=== PATIENT | female | born 1995 | race Caucasian/White ===

== ENCOUNTER 2017-11-28 17:52 | Inpatient (IN) | payer OTHER, MEDICAID ==
[~2017-11-28] VITALS: Ht 167.6 cm; Wt 108.6 kg
[~2017-11-28 17:52] MED LIST: IBUP-1222 PO
[2017-11-28] MEDS ORDERED: OXYTOCIN 30U/ 0.9% NaCL 500ML 500 ML IV PRN (17:53)
[2017-11-28] MEDS ORDERED: D5%-LACTATED RINGERS 1,000 ML IV SCH (17:53)
[2017-11-28] MEDS ORDERED: OXYTOCIN 30U/ 0.9% NaCL 500ML 500 ML IV ONE (17:53)
[2017-11-28] MEDS ORDERED: ONDANSETRON 2MG/ML, 2ML IVPush PRN (18:00)
[2017-11-28] MEDS ORDERED: FENTANYL PF 100 MCG/2ML IVPush PRN (18:00)
[2017-11-28] MEDS ORDERED: TERBUTALINE 1 MG/ML, 1ML IVPush PRN (18:00)
[2017-11-28] MEDS ORDERED: FENTANYL PF 100 MCG/2ML IV PRN (18:00)
[2017-11-28] MEDS: LACTATED RINGERS 1,000 ML IV SCH (18:25)
[2017-11-28] MEDS ORDERED: MISOPROSTOL 200 MCG TABLET ONE (18:28)
[2017-11-28] MEDS ORDERED: OXYTOCIN 30U/ 0.9% NaCL 500ML 500 ML ONE ×2 (18:28→23:04)
[2017-11-28] MEDS ORDERED: NEWBORN KIT ONE (18:28)
[2017-11-28] MEDS ORDERED: LIDOCAINE 1%, 20ML ONE (18:28)
[2017-11-28 18:41] LABS: ALANINE AMINOTRANSFERASE 69 U/L (12-78); ALBUMIN 2.7 g/dL (3.4-5.0); ANION GAP 10 mmol/L (5-15); CALCIUM 8.7 mg/dL (8.5-10.1); CHLORIDE 107 mmol/L (98-107)
[2017-11-28 18:44] LABS: ALKALINE PHOSPHATASE 250 U/L (45-117); BILIRUBIN,TOTAL 0.2 mg/dL (0.2-1.0); TOTAL PROTEIN 7.1 g/dL (6.4-8.2)
[2017-11-28 18:47] LABS: BASOPHILS # (AUTO) 0.02 x10^3/uL (0-0.1); BASOPHILS % (AUTO) 0 % (0-1); BILIRUBIN, DIRECT < 0.1 mg/dL (0.1-0.2); EOSINOPHILS # (AUTO) 0.03 x10^3/uL (0-0.4); EOSINOPHILS % (AUTO) 0 % (1-7); LYMPHOCYTES # (AUTO) 1.43 x10^3/uL (1-3.4); LYMPHOCYTES % (AUTO) 24 % (22-44); MD MORPH REVIEW ONLY; MEAN CORPUSCULAR HGB CONC 34.2 g/dL (32.4-35.8); MEAN CORPUSCULAR VOLUME 82.1 fL (80-100); MEAN PLATELET VOLUME 11.6 fL (7.4-10.4); MONOCYTES # (AUTO) 0.29 x10^3/uL (0.2-0.8); MONOCYTES % (AUTO) 5 % (2-9); NEUTROPHILS # (AUTO) 4.28 x10^3/uL (1.8-6.8); NEUTROPHILS % (AUTO) 71 % (42-75); PLATELET COUNT 201 x10^3/uL (130-400); RED BLOOD COUNT 4.04 x10^6/uL (3.82-5.3)
[2017-11-28 18:49] LABS: <PLATELET ESTIMATE> ADEQUATE; <RBC MORPHOLOGY> NORMAL
[2017-11-28 18:50] LABS: GIANT PLATELETS 1+; LARGE PLATELETS 1+
[2017-11-28] MEDS ORDERED: FENTANYL PF 100 MCG/2ML ONE (21:13)
[2017-11-28] MEDS ORDERED: MISOPROSTOL 200 MCG TABLET PR PRN (23:00)
[2017-11-28] MEDS ORDERED: ONDANSETRON 2MG/ML, 2ML IV PRN (23:00)
[2017-11-28] MEDS ORDERED: OXYcodone IR 5MG TABLET PO PRN (23:00)
[2017-11-28] MEDS ORDERED: OXYcodone/APAP 5/325MG TABLET PO PRN (23:00)
[2017-11-28] MEDS ORDERED: ACETAMINOPHEN 325 MG TABLET PO PRN (23:00)
[2017-11-28] MEDS ORDERED: IBUPROFEN 600 MG TABLET ONE (23:04)
[2017-11-28] MEDS: IBUPROFEN 600 MG TABLET PO PRN (23:05)
[2017-11-28] MEDS: OXYTOCIN 30U/ 0.9% NaCL 500ML 500 ML IV SCH (23:41)
[2017-11-29 00:35] VITALS: BP 131/82
[2017-11-29] MEDS: LACTATED RINGERS 1,000 ML IV SCH (01:53)
[2017-11-29 04:30] VITALS: BP 133/83
[2017-11-29 05:24] LABS: BASOPHILS # (AUTO) 0.02 x10^3/uL (0-0.1); BASOPHILS % (AUTO) 0 % (0-1); EOSINOPHILS # (AUTO) 0.01 x10^3/uL (0-0.4); EOSINOPHILS % (AUTO) 0 % (1-7); LYMPHOCYTES # (AUTO) 1.15 x10^3/uL (1-3.4); LYMPHOCYTES % (AUTO) 14 % (22-44); MD NO; MEAN CORPUSCULAR HEMOGLOBIN 27.5 pg (27.0-34.8); MEAN CORPUSCULAR HGB CONC 33.5 g/dL (32.4-35.8); MEAN CORPUSCULAR VOLUME 82.1 fL (80-100); MEAN PLATELET VOLUME 11.7 fL (7.4-10.4); MONOCYTES # (AUTO) 0.32 x10^3/uL (0.2-0.8); MONOCYTES % (AUTO) 4 % (2-9); NEUTROPHILS # (AUTO) 6.79 x10^3/uL (1.8-6.8); NEUTROPHILS % (AUTO) 82 % (42-75); PLATELET COUNT 159 x10^3/uL (130-400); RED BLOOD COUNT 3.32 x10^6/uL (3.82-5.3); RED CELL DISTRIBUTION WIDTH 14.3 % (9.6-15.2)
[2017-11-29 05:28] LABS: CHLORIDE 108 mmol/L (98-107)
[2017-11-29 05:36] LABS: ALANINE AMINOTRANSFERASE 59 U/L (12-78); ALBUMIN 2.2 g/dL (3.4-5.0); ALKALINE PHOSPHATASE 185 U/L (45-117); ANION GAP 9 mmol/L (5-15); BILIRUBIN,TOTAL 0.4 mg/dL (0.2-1.0); CALCIUM 8.1 mg/dL (8.5-10.1); CREATININE 0.63 mg/dL (0.55-1.02); TOTAL PROTEIN 5.5 g/dL (6.4-8.2)
[2017-11-29] MEDS: DOCUSATE 100 MG CAPSULE PO PRN ×2 (07:45→19:21)
[2017-11-29] MEDS: PRENATAL VIT/IRON/FA 1 EACH TABLET PO SCH (07:45)
[2017-11-29 07:50] VITALS: BP 133/80
[2017-11-29] MEDS: OXYTOCIN 30U/ 0.9% NaCL 500ML 500 ML IV SCH ×2 (08:50→18:50)
[2017-11-29 12:00] VITALS: BP 127/84
[2017-11-29] MEDS: IBUPROFEN 600 MG TABLET PO PRN (19:21)
[2017-11-29 19:30] VITALS: BP 132/85
[2017-11-30] MEDS: OXYTOCIN 30U/ 0.9% NaCL 500ML 500 ML IV SCH (04:50)
[2017-11-30] MEDS: IBUPROFEN 600 MG TABLET PO PRN (05:42)
[2017-11-30] MEDS: PRENATAL VIT/IRON/FA 1 EACH TABLET PO SCH (07:59)
[2017-11-30] MEDS: DOCUSATE 100 MG CAPSULE PO PRN (07:59)
[2017-11-30 08:00] VITALS: BP 144/86
== END 2017-11-30 19:10 | disposition home or self-care (01) | DRG 775 ==
LOC: LDIP 17:52 → 2NW 11-29 00:28
PROVIDERS: ADMIT Obstetrics & Gynecology; ATTEND Obstetrics & Gynecology
PROC: 10E0XZZ Delivery of Products of Conception, External Approach (ICD-10-PCS; principal; 2017-11-28)
DX: O24.420 Gestational diabetes mellitus in childbirth, diet controlled (principal); O14.24 HELLP syndrome, complicating childbirth; R74.8 Abnormal levels of other serum enzymes; Z37.0 Single live birth; Z3A.38 38 weeks gestation of pregnancy
CPT/HCPCS: 36415; 80053; 82248; 84550; 85025; 86850; 86900; J3010; J2590; J7120